=== PATIENT | male | born 1950 | race Caucasian/White ===

== ENCOUNTER → 2017-01-17 | Outpatient (CLI) | payer BC ==
[~2017-01-17] MED LIST: ADALAT CC60 MG PO; ALTACE 10MG TAB10 MG PO; ASPIRIN 81M81 MG/TA2 PO; GLUCOPHAGE XR750 MG PO; GLUCOTROL XL2.5 MG PO; HCTZ 25MG TAB25 MG PO; LIPITOR20 MG PO; TOPROL XL200 MG PO; TYLENOL 325MG325 MG PO
== END ==
LOC: COL.RAD 12:10
DX: M51.37 Other intervertebral disc degeneration, lumbosacral region (principal)

== ENCOUNTER 2017-02-06 12:13 | Inpatient (IN) | payer BC ==
[~2017-02-06] VITALS: Ht 177.8 cm; Wt 89.6 kg
[~2017-02-06 12:13] MED LIST changes: -TYLENOL 325MG325 MG PO
[2017-02-06 13:45] VITALS: BP 128/62; PULSE 75; TEMP 98.3
[2017-02-06 14:47] LABS: BASO # 0.1 (0.0-0.2); BASO % 0.5 % (0.0-2.0); EOS # 0.2 (0.0-0.7); EOS % 1.9 % (0-4.0); GRAN # 7.4 (1.4-6.5); GRAN % 77.3 % (42.2-75.2); HEMATOCRIT 43.9 % (42.0-52.0); HEMOGLOBIN 16.3 g/dl (13.5-18.0); LYMPH # 1.2 (1.2-3.4); LYMPH % 12.7 % (20.0-51.0); MEAN CELL VOLUME 85 fl (80.0-100.0); MEAN CORPUSCULAR HEMOGLOBIN 32 pg (27.0-31.0); MEAN CORPUSCULAR HGB CONC 37 g/dl (33.0-37.0); MEAN PLATELET VOLUME 9.3 fl (7.4-10.4); MONO # 0.7 (0.1-0.6); MONO % 7.3 % (1.7-9.3); PLATELET COUNT 289 K/mm3 (130-400); RED BLOOD COUNT 5.14 M/mm3 (4.20-5.60); WHITE BLOOD COUNT 9.6 K/mm3 (4.8-10.8)
[2017-02-06 14:57] LABS: ADJUSTED CALCIUM 9.7 mg/dL (8.4-10.2); CALCIUM 9.7 mg/dL (8.4-10.2); CREATININE, serum 0.86 mg/dL (0.66-1.25); POTASSIUM 3.3 mmol/L (3.4-5.0); TOTAL PROTEIN 7.1 gm/dL (6.4-8.2)
[2017-02-06 15:08] LABS: ERYTHROCYTE SEDIMENTATION RATE 11 mm/hr (0-30)
[2017-02-06 16:00] VITALS: BP 127/67; PULSE 82; TEMP 97.8
[2017-02-06 19:31] VITALS: BP 135/67; PULSE 89; TEMP 99.2
[2017-02-06 23:29] VITALS: BP 137/76; PULSE 77; TEMP 98.3
[2017-02-07 02:59] VITALS: BP 120/74; PULSE 76; TEMP 98.2
[2017-02-07 07:20] LABS: URIC ACID 6.6 mg/dL (3.5-8.5)
[2017-02-07 08:00] VITALS: BP 120/69; PULSE 78; TEMP 97.6
[2017-02-07 11:39] VITALS: BP 119/81; PULSE 85; TEMP 98.1
[2017-02-07 12:29] LABS: CEREBROSPINAL TUBE #4; CSF APPEARANCE CLEAR; CSF COLOR COLORLESS; CSF POLYMORPHONUCLEAR 0 % (0-6)
[2017-02-07 15:42] VITALS: BP 114/63; PULSE 82; TEMP 97.8
[2017-02-07 21:49] VITALS: BP 126/70; PULSE 76; TEMP 98.1
[2017-02-08 01:35] VITALS: BP 119/70; PULSE 74; TEMP 98.1
[2017-02-08 07:34] VITALS: BP 130/75; PULSE 81; TEMP 98.2
[2017-02-08 07:58] LABS: BASO % 0.5 % (0.0-2.0); EOS # 0.3 (0.0-0.7); GRAN # 5.3 (1.4-6.5); GRAN % 63.9 % (42.2-75.2); HEMATOCRIT 42.4 % (42.0-52.0); HEMOGLOBIN 15.3 g/dl (13.5-18.0); LYMPH # 1.9 (1.2-3.4); LYMPH % 22.4 % (20.0-51.0); MEAN CELL VOLUME 86 fl (80.0-100.0); MEAN CORPUSCULAR HEMOGLOBIN 31 pg (27.0-31.0); MEAN CORPUSCULAR HGB CONC 36 g/dl (33.0-37.0); MEAN PLATELET VOLUME 9.6 fl (7.4-10.4); MONO # 0.8 (0.1-0.6); MONO % 9.1 % (1.7-9.3); PLATELET COUNT 283 K/mm3 (130-400); RED BLOOD COUNT 4.91 M/mm3 (4.20-5.60); WHITE BLOOD COUNT 8.3 K/mm3 (4.8-10.8)
[2017-02-08 08:16] LABS: CALCIUM 9.3 mg/dL (8.4-10.2); CREATININE, serum 0.81 mg/dL (0.66-1.25)
[2017-02-08 11:51] VITALS: BP 127/71; PULSE 71; TEMP 99.4
[2017-02-08 15:27] VITALS: BP 116/70; PULSE 78; TEMP 98.5
[2017-02-08 19:15] VITALS: BP 123/65; PULSE 75; TEMP 98.2
[2017-02-09] VITALS (17 sets, daily range): BP systolic 112–154; BP diastolic 43–93; PULSE 61–81; TEMP 97.4–98.8
[2017-02-10] VITALS (12 sets, daily range): BP systolic 110–150; BP diastolic 65–85; PULSE 52–75; TEMP 98.2–98.6
[2017-02-10 07:22] LABS: BASO % 0.6 % (0.0-2.0); EOS # 0.4 (0.0-0.7); EOS % 7.3 % (0-4.0); GRAN # 2.9 (1.4-6.5); HEMATOCRIT 37.4 % (42.0-52.0); HEMOGLOBIN 13.6 g/dl (13.5-18.0); LYMPH # 1.3 (1.2-3.4); LYMPH % 25.9 % (20.0-51.0); MEAN CELL VOLUME 87 fl (80.0-100.0); MEAN CORPUSCULAR HEMOGLOBIN 32 pg (27.0-31.0); MEAN CORPUSCULAR HGB CONC 36 g/dl (33.0-37.0); MEAN PLATELET VOLUME 9.5 fl (7.4-10.4); MONO # 0.5 (0.1-0.6); PLATELET COUNT 229 K/mm3 (130-400); RED BLOOD COUNT 4.31 M/mm3 (4.20-5.60); WHITE BLOOD COUNT 5.2 K/mm3 (4.8-10.8)
[2017-02-10 08:01] LABS: CALCIUM 8.9 mg/dL (8.4-10.2); CREATININE, serum 0.77 mg/dL (0.66-1.25); PHOSPHOROUS 3.6 mg/dL (2.5-4.5); POTASSIUM 3.4 mmol/L (3.4-5.0)
[2017-02-11 01:53] VITALS: BP 129/80; PULSE 63; TEMP 98.4
[2017-02-11 06:03] VITALS: BP 138/74; PULSE 64; TEMP 98.1
[2017-02-11 07:58] VITALS: BP 143/72; PULSE 66; TEMP 97.3
[2017-02-11 09:38] LABS: CSF IGG/ALBUMIN 0.17 (<=0.21)
[2017-02-11 10:01] LABS: CSF SYNTHESIS RATE 16.15 mg/24 h (<=12); CSF-IGG INDEX 0.65 (<=0.85); IGG/ALBUMIN SERUM 0.26 (<=0.40)
[2017-02-11 10:57] LABS: BASO % 0.7 % (0.0-2.0); EOS # 0.4 (0.0-0.7); EOS % 8.3 % (0-4.0); GRAN # 2.3 (1.4-6.5); GRAN % 54.3 % (42.2-75.2); HEMATOCRIT 38.7 % (42.0-52.0); HEMOGLOBIN 14.1 g/dl (13.5-18.0); LYMPH # 0.9 (1.2-3.4); LYMPH % 22.4 % (20.0-51.0); MEAN CELL VOLUME 86 fl (80.0-100.0); MEAN CORPUSCULAR HEMOGLOBIN 31 pg (27.0-31.0); MEAN CORPUSCULAR HGB CONC 36 g/dl (33.0-37.0); MEAN PLATELET VOLUME 9.5 fl (7.4-10.4); MONO # 0.6 (0.1-0.6); MONO % 13.8 % (1.7-9.3); PLATELET COUNT 220 K/mm3 (130-400); WHITE BLOOD COUNT 4.2 K/mm3 (4.8-10.8)
[2017-02-11 11:06] LABS: CALCIUM 9.2 mg/dL (8.4-10.2); CREATININE, serum 0.77 mg/dL (0.66-1.25); MAGNESIUM 1.9 mg/dL (1.6-2.3); PHOSPHOROUS 3.2 mg/dL (2.5-4.5)
[2017-02-11 11:10] VITALS: BP 140/70; PULSE 58; TEMP 99.1
[2017-02-11 15:20] VITALS: BP 136/70; PULSE 70; TEMP 98.2
[2017-02-11 20:47] VITALS: BP 123/66; PULSE 68; TEMP 98.3
[2017-02-12] VITALS (13 sets, daily range): BP systolic 127–151; BP diastolic 60–84; PULSE 61–80; TEMP 97.8–98.4
[2017-02-12 06:39] LABS: BASO % 0.8 % (0.0-2.0); EOS # 0.5 (0.0-0.7); EOS % 10.4 % (0-4.0); GRAN # 2.4 (1.4-6.5); GRAN % 50.7 % (42.2-75.2); HEMATOCRIT 39.3 % (42.0-52.0); HEMOGLOBIN 14.1 g/dl (13.5-18.0); LYMPH # 1.2 (1.2-3.4); LYMPH % 24.2 % (20.0-51.0); MEAN CELL VOLUME 87 fl (80.0-100.0); MEAN CORPUSCULAR HEMOGLOBIN 31 pg (27.0-31.0); MEAN CORPUSCULAR HGB CONC 36 g/dl (33.0-37.0); MEAN PLATELET VOLUME 9.5 fl (7.4-10.4); MONO # 0.6 (0.1-0.6); MONO % 13.3 % (1.7-9.3); PLATELET COUNT 229 K/mm3 (130-400); RED BLOOD COUNT 4.51 M/mm3 (4.20-5.60); WHITE BLOOD COUNT 4.8 K/mm3 (4.8-10.8)
[2017-02-12 06:55] LABS: CREATININE, serum 0.76 mg/dL (0.66-1.25); POTASSIUM 3.6 mmol/L (3.4-5.0)
[2017-02-13 00:58] VITALS: BP 134/66; PULSE 62; TEMP 98.4
[2017-02-13 08:15] VITALS: BP 145/88; PULSE 92; TEMP 97.7
[2017-02-13 12:34] VITALS: BP 140/77; PULSE 68; TEMP 98.4
[2017-02-13 15:46] VITALS: BP 116/57; PULSE 73; TEMP 98
== END 2017-02-13 19:24 | DRG 95 ==
LOC: MEDICAL 12:13
PROVIDERS: Internal Medicine; Physician Assistant; Psychiatry & Neurology Neurology
PROC: 009U3ZX Drainage of Spinal Canal, Percutaneous Approach, Diagnostic (ICD-10-PCS; principal; 2017-02-07)
PROC: B01B1ZZ Fluoroscopy of Spinal Cord using Low Osmolar Contrast (ICD-10-PCS; 2017-02-07)
DX: G61.0 Guillain-Barre syndrome (principal); E87.1 Hypo-osmolality and hyponatremia; I10 Essential (primary) hypertension; E11.9 Type 2 diabetes mellitus without complications; E87.6 Hypokalemia; Z87.891 Personal history of nicotine dependence; M51.36 Other intervertebral disc degeneration, lumbar region; M10.9 Gout, unspecified
CPT/HCPCS: 99231-AI; 99232-AI; 99233-AI; 99239; A9585; G0378; G0379; J1200; J1569; J1650; J1815

== ENCOUNTER 2017-02-13 16:34 | Inpatient (IN) | payer BC ==
[~2017-02-13] VITALS: Ht 177.8 cm; Wt 90.5 kg
[2017-02-13 20:30] VITALS: BP 150/73; PULSE 63; TEMP 98.8
[2017-02-14 03:24] VITALS: BP 153/92; BP 153/921; PULSE 98; TEMP 98.3
[2017-02-14 17:19] VITALS: BP 127/76; PULSE 66; TEMP 98.7
[2017-02-15 05:08] VITALS: BP 134/74; PULSE 67; TEMP 96.8
[2017-02-15 16:12] VITALS: BP 137/73; PULSE 66; TEMP 98.3
[2017-02-16 05:03] VITALS: BP 140/74; PULSE 70; TEMP 98.6
[2017-02-16 16:09] VITALS: BP 129/75; PULSE 74; TEMP 98
[2017-02-17 06:19] VITALS: BP 133/78; PULSE 69; TEMP 98.4
[2017-02-17 15:29] VITALS: BP 134/38; PULSE 94; TEMP 98.6
[2017-02-18 06:01] VITALS: BP 137/76; PULSE 73; TEMP 98.2
[2017-02-18 16:45] VITALS: BP 134/70; PULSE 67; TEMP 98.4
[2017-02-19 04:55] VITALS: BP 131/71; PULSE 68; TEMP 98.1
[2017-02-19 18:08] VITALS: BP 130/70; PULSE 71; TEMP 98.3
[2017-02-20 06:10] VITALS: BP 136/82; PULSE 70; TEMP 98.3
[2017-02-20 17:13] VITALS: BP 124/70; PULSE 76; TEMP 98
[2017-02-21 05:13] VITALS: BP 140/75; PULSE 70; TEMP 98.4
[2017-02-21 15:21] VITALS: BP 124/75; PULSE 73; TEMP 98.2
[2017-02-22 05:40] VITALS: BP 145/73; PULSE 72; TEMP 98
[2017-02-22 16:12] VITALS: BP 141/80; PULSE 98; TEMP 98.1
[2017-02-23 04:12] VITALS: BP 168/93; PULSE 128; TEMP 98.7
[2017-02-23 04:47] VITALS: BP 126/71; PULSE 90; TEMP 98.8
[2017-02-23 16:39] VITALS: BP 133/82; PULSE 98; TEMP 98.3
[2017-02-24 06:03] VITALS: BP 124/52; PULSE 81; TEMP 98.4
[2017-02-24 17:31] VITALS: BP 139/83; PULSE 80; TEMP 98.4
[2017-02-25 05:43] VITALS: BP 148/70; PULSE 83; TEMP 98.2
[2017-02-25 15:54] VITALS: BP 141/80; PULSE 76; TEMP 98.3
[2017-02-26 05:11] VITALS: BP 140/78; PULSE 87; TEMP 98.2
[2017-02-26 16:19] VITALS: BP 136/79; PULSE 76; TEMP 98.4
[2017-02-27 05:07] VITALS: BP 128/65; PULSE 74; TEMP 98.2
[2017-02-27 18:00] VITALS: BP 134/78; PULSE 83; TEMP 98.4
[2017-02-28 04:44] VITALS: BP 127/77; PULSE 69; TEMP 97.9
[2017-02-28 15:36] VITALS: BP 132/75; PULSE 80; TEMP 98.5
[2017-03-01 05:53] VITALS: BP 134/69; PULSE 65; TEMP 98.2
[2017-03-01 17:20] VITALS: BP 121/69; PULSE 71; TEMP 98.2
[2017-03-02 06:22] VITALS: BP 134/85; PULSE 75; TEMP 98.2
[2017-03-02 17:21] VITALS: BP 118/72; PULSE 66; TEMP 98.2
[2017-03-03 06:20] VITALS: BP 136/74; PULSE 70; TEMP 98.4
[2017-03-03 17:17] VITALS: BP 133/74; PULSE 64; TEMP 98.4
[2017-03-04 06:20] VITALS: BP 127/72; PULSE 67; TEMP 98.4
[2017-03-04 16:29] VITALS: BP 129/66; PULSE 61; TEMP 98.1
[2017-03-05 06:50] VITALS: BP 137/77; PULSE 69; TEMP 98.1
[2017-03-05 19:13] VITALS: BP 137/69; PULSE 69; TEMP 98.3
[2017-03-06 06:19] VITALS: BP 142/74; PULSE 75; TEMP 98.5
[2017-03-06 16:30] VITALS: BP 132/66; PULSE 74; TEMP 97.6
[2017-03-07 05:48] VITALS: BP 133/70; PULSE 68; TEMP 98.4
[2017-03-07 16:17] VITALS: BP 126/69; PULSE 59; TEMP 98.1
[2017-03-08 06:11] VITALS: BP 130/71; PULSE 72; TEMP 98
[2017-03-08 08:10] VITALS: PULSE 88
[2017-03-08] MEDS ORDERED: TYLENOL 325MG325 MG PO (10:30)
== END 2017-03-08 13:30 | disposition home or self-care (01) | DRG 74 ==
DX: G65.0 Sequelae of Guillain-Barre syndrome (principal); G81.90 Hemiplegia, unspecified affecting unspecified side; I10 Essential (primary) hypertension; E11.9 Type 2 diabetes mellitus without complications; Z87.891 Personal history of nicotine dependence
CPT/HCPCS: 99222-AI; 99232-AI; 99239; J1650; J1815

== ENCOUNTER 2017-03-15 09:53 | Outpatient (CLI) | payer BC ==
[2017-03-15] VITALS (19 sets, daily range): BP systolic 105–142; BP diastolic 51–99; PULSE 64–101; TEMP 97.9–98.9
[~2017-03-15] VITALS: Ht 177.8 cm; Wt 90.9 kg
[~2017-03-15 09:53] MED LIST changes: +TYLENOL 325MG325 MG PO
== END 2017-03-15 16:35 | disposition home or self-care (01) ==
LOC: EUO 09:53
DX: G61.81 Chronic inflammatory demyelinating polyneuritis (principal); Z79.899 Other long term (current) drug therapy
CPT/HCPCS: J1200; J1459; J1569; J2930

== ENCOUNTER 2017-04-16 09:12 | Outpatient (CLI) | payer MEDICARE ==
[~2017-04-16] VITALS: Ht 177.8 cm; Wt 80.4 kg
[2017-04-16 09:45] VITALS: BP 115/74; PULSE 84; TEMP 97.8
[2017-04-16 10:15] VITALS: BP 126/79; PULSE 75; TEMP 97.8
[2017-04-16 10:30] VITALS: BP 129/73; PULSE 70; TEMP 97.8
[2017-04-16 11:00] VITALS: BP 133/76; PULSE 69; TEMP 97.8
[2017-04-16 12:00] VITALS: BP 104/82; PULSE 79; TEMP 97.8
== END 2017-04-16 15:07 | disposition home or self-care (01) ==
LOC: EUO 09:12
DX: G61.81 Chronic inflammatory demyelinating polyneuritis (principal); Z79.899 Other long term (current) drug therapy
CPT/HCPCS: J1200; J1569; J2930

== ENCOUNTER 2017-05-14 09:30 | Outpatient (CLI) | payer MEDICARE ==
[~2017-05-14] VITALS: Ht 177.8 cm; Wt 97.3 kg
[2017-05-14] VITALS (12 sets, daily range): BP systolic 107–135; BP diastolic 61–89; PULSE 62–84; TEMP 97.9–98.5
== END 2017-05-14 16:08 | disposition home or self-care (01) ==
LOC: EUO 09:30
DX: G61.81 Chronic inflammatory demyelinating polyneuritis (principal)
CPT/HCPCS: J1200; J1569; J2930

== ENCOUNTER → 2017-06-10 | Outpatient (RCR) | payer BC | END | disposition home or self-care (01) | LOC: WSPT | DX: G61.0 Guillain-Barre syndrome (principal); Z79.84 Long term (current) use of oral hypoglycemic drugs; Z79.82 Long term (current) use of aspirin | CPT/HCPCS: G8978-GP; G8979-GP ==

== ENCOUNTER → 2017-06-12 | Outpatient (CLI) | payer MEDICARE ==
[2017-06-12] VITALS (12 sets, daily range): BP systolic 129–158; BP diastolic 67–87; PULSE 63–89; TEMP 98–98.3
[~2017-06-12] VITALS: Ht 177.8 cm; Wt 97.0 kg
== END ==
LOC: EUO 10:06
DX: G61.81 Chronic inflammatory demyelinating polyneuritis (principal); Z79.899 Other long term (current) drug therapy
CPT/HCPCS: J1200; J1459; J1569; J2930

== ENCOUNTER 2017-07-10 09:34 | Outpatient (CLI) | payer MEDICARE ==
[2017-07-10] VITALS (14 sets, daily range): BP systolic 133–150; BP diastolic 73–107; PULSE 62–82; TEMP 97.5–98.5
[~2017-07-10] VITALS: Ht 177.8 cm; Wt 97.3 kg
== END 2017-07-10 16:34 | disposition home or self-care (01) ==
LOC: EUO 09:34
DX: G61.81 Chronic inflammatory demyelinating polyneuritis (principal); Z79.899 Other long term (current) drug therapy
CPT/HCPCS: J1200; J1459; J1569; J2930

== ENCOUNTER 2017-08-14 09:05 | Outpatient (CLI) | payer MEDICARE ==
[2017-08-14] VITALS (10 sets, daily range): BP systolic 88–144; BP diastolic 64–94; PULSE 68–90; TEMP 98.2–98.6
[~2017-08-14] VITALS: Ht 177.8 cm; Wt 98.9 kg
== END 2017-08-14 16:37 | disposition home or self-care (01) ==
LOC: EUO 09:05
DX: G61.81 Chronic inflammatory demyelinating polyneuritis (principal); Z79.899 Other long term (current) drug therapy
CPT/HCPCS: J1200; J1569; J2930

== ENCOUNTER 2017-08-22 12:00 | Outpatient (RCR) | payer MEDICARE | END 2017-09-02 08:16 | disposition home or self-care (01) | LOC: WSPT 12:00 | DX: G61.0 Guillain-Barre syndrome (principal) | CPT/HCPCS: G8978-GP; G8979-GP; G8980-GP ==

== ENCOUNTER 2018-12-30 13:16 | Day surgery (SDC) | payer MEDICARE ==
[~2018-12-30] VITALS: Ht 177.8 cm; Wt 92.7 kg
[2018-12-30] MEDS ORDERED: TRULICITY1.5 MG/0.5 SQ (13:31)
[2018-12-30 13:33] VITALS: BP 132/80; PULSE 86; TEMP 98.3
[2018-12-30 14:40] VITALS: BP 130/82; PULSE 87; TEMP 98.2
--- NOTE | 2018-12-30 14:40 | NUR ---
The patient arrived back to [facility] from the endoscopy suite at this time. The patient appears alert and oriented and denies any pain or nasuea at this time. The patient's post procedure vital signs were started at this time. THe patient ambulated from the cart to the recliner in his room with the stand by assistance of two nurses and appeared to tolerate the activity well. The patient requests to try some cranberry juice and a muffin at this time. Call light is within reach. Will continue to monitor the patient.
[2018-12-30 14:55] VITALS: BP 123/92; PULSE 79
--- NOTE | 2018-12-30 14:55 | NUR ---
The patient appears to be tolerating the food and drink well. The patient denies wanting anything further to eat or drink at this time. Will continue to monitor the patient.
[2018-12-30 15:10] VITALS: BP 125/75; PULSE 78
--- NOTE | 2018-12-30 15:15 | NUR ---
Dr. Pitts is at the patient's bedside discussing the findings of the procedure.
[2018-12-30 15:20] VITALS: BP 119/71; PULSE 75
--- NOTE | 2018-12-30 15:20 | NUR ---
Discharge instructions were reviewed with the patient at this time. He verbalized understanding and has no questions for the nurse at this time. The patient's IV to his right hand was removed and a pressure dressing was applied to the site. The nurse instructed the patient to notify the staff when he is ready to be escorted out.
--- NOTE | 2018-12-30 15:30 | NUR ---
The patient was escorted out via ambulation to a private vehicle escorted by [facility]. The patient's belongings and discharge paperwork were sent with him. The patient's friend is present to drive him home.
== END 2018-12-30 15:30 | disposition home or self-care (01) ==
LOC: SDCO 13:16
DX: Z12.11 Encounter for screening for malignant neoplasm of colon (principal); Z86.010 Personal history of colon polyps; D12.2 Benign neoplasm of ascending colon; K57.30 Diverticulosis of large intestine without perforation or abscess without bleeding; I10 Essential (primary) hypertension; E78.00 Pure hypercholesterolemia, unspecified; E11.9 Type 2 diabetes mellitus without complications; Z90.49 Acquired absence of other specified parts of digestive tract
CPT/HCPCS: J2250; J2405; J3010